=== PATIENT | male | born 1945 ===

== ENCOUNTER 2017-06-15 13:30 | Outpatient (CLI) | payer MEDICARE ==
--- NOTE | 2017-06-16 09:10 | Mammography Report ---
BONE DEXA:06/15/17 13:30:00 CLINICAL: Screening for osteoporosis. Postmenopausal. COMPARISON: 10/01/16 TECHNIQUE: Two site bone DEXA performed on an Hologic scanner. FINDINGS: The average BMD of the lumbar spine L1-L4 is 0.754g/cm squared with a T-score of -3.1 and a Z-score of -2.1. This compares to 0.747g/cm squared on the last exam and represents a +0.9% change from the previous baseline. The average BMD of the left hip is 0.820g/cm squared with a T-score of -1.4 and a Z-score of minus R. 0.7. This compares to 0.855g/cm squared on the last exam and represents a -4.1% change from the previous baseline. The femoral neck BMD is 0.665g/cm squared with a T score of -2.0 and a Z score of -0.7. IMPRESSION: 1. WHO classification: Osteoporosis with high fracture risk based on spine measurements. Minimal improvement in spine BMD compared to the prior exam. 2. WHO classification: Osteopenia with increased fracture risk based on left hip measurements. A 4.1% decline in left hip BMD compared to the prior exam. RECOMMENDATION: Clinical correlation and routine screening. DEFINITIONS: BMD = Bone Mineral Density T-score = BMD related to mean peak bone mass of young adult (mean expressed in Standard Deviation) Z-score = Age matched BMD expressed in SD World Health Organization (WHO) Diagnostic Criteria Normal T-score > -1 SD Osteopenia T-score between -1 and -2.4 SD Osteoporosis T-score -2.5 SD or below NOTE: BMD is not the only risk factor for fracture; also consider factors such as the patient's age, risk of falling, previous osteoporotic fracture, family history of osteoporotic fractures, current smoker, and low body weight. Z-scores are not calculated if >80 years of age.
== END 2017-06-15 13:31 | disposition home or self-care (01) ==
LOC: SPVWC 13:30
PROVIDERS: ATTEND Family Medicine
DX: M81.0 Age-related osteoporosis without current pathological fracture (principal); M85.88 Other specified disorders of bone density and structure, other site
CPT/HCPCS: 77080